=== PATIENT | female | born 1975 | race Caucasian/White ===

== ENCOUNTER 2022-06-14 11:35 | Emergency (ER) | payer SELFPAY ==
[~2022-06-14] VITALS: Ht 175.3 cm; Wt 86.2 kg
[2022-06-14] MEDS ORDERED: KETOROLAC TROMETHAMINE 30 MG/ML VIAL IV STA ×2 (12:15→14:41)
[2022-06-14] MEDS ORDERED: ONDANSETRON HCL INJ 2MG/ML 2ML 2 MG/ML VIAL IV PRN (12:15)
[2022-06-14] MEDS ORDERED: SODIUM CHLORIDE 0.9% 1000ML 1,000 ML IV ONE (12:15)
[2022-06-14] MEDS ORDERED: HYDROCODONE/APAP 5MG-325MG TAB PO PRN (12:30)
[2022-06-14] MEDS ORDERED: ONDANSETRON HCL 4 MG ORAL DISINTEGRATING TAB PO ONE (12:30)
[2022-06-14 13:12] LABS: ALBUMIN 3.6 g/dL (3.5-5.0); ALBUMIN/GLOBULIN RATIO 1.1 (0.8-2.0); ANION GAP 13.6 mmol/L (8-16); CALCIUM 8.7 mg/dL (8.4-10.2); CREATININE, SERUM 0.83 mg/dL (0.57-1.11); POTASSIUM 4.6 mmol/L (3.5-5.1)
[2022-06-14 13:55] LABS: BASOPHILS % 0.3 % (0.0-1.0); EOSINOPHILS # (AUTO) 0.1 (0.0-0.4); EOSINOPHILS % 1.7 % (0.0-6.0); HEMATOCRIT 41.6 % (34.2-44.1); HEMOGLOBIN 13.8 g/dL (12.0-16.0); LYMPHOCYTES # (AUTO) 2.7 (1.0-3.2); LYMPHOCYTES % 34.1 % (18.0-39.1); MEAN CORPUSCULAR HEMOGLOBIN 30.7 pg (28-32); MEAN CORPUSCULAR HGB CONC 33.2 g/dL (31-35); MEAN CORPUSCULAR VOLUME 92.7 fL (81-99); MONOCYTES # (AUTO) 0.4 (0.2-0.8); MONOCYTES % 5.6 % (4.4-11.3); NEUTROPHILS # (AUTO) 4.5 (2.1-6.9); PLATELET COUNT 291 x10e3/uL (140-360); RED BLOOD COUNT 4.49 x10e6/uL (3.6-5.1); RED CELL DISTRIBUTION WIDTH 12.5 % (11.7-14.4)
[2022-06-14 14:18] LABS: CLARITY,URINE CLOUDY (CLEAR); COLOR,URINE YELLOW (YELLOW)
[2022-06-14 14:19] LABS: KETONES,URINE TRACE (NEGATIVE); LEUKOCYTE ESTERASE ,URINE NEGATIVE (NEGATIVE); NITRITE,URINE NEGATIVE (NEGATIVE); PROTEIN,URINE DIPSTICK NEGATIVE (NEGATIVE); URINE UROBILINOGEN 0.2 mg/dL (0.2 - 1)
[2022-06-14 14:45] LABS: RBC,URINE 0-5 /HPF (0-5); WBC,URINE (MAN) 0-5 /HPF (0-5)
[2022-06-14 14:46] LABS: BACTERIA,URINE FEW /HPF; EPITHELIAL CELLS,URINE MANY /LPF
[2022-06-14] MEDS ORDERED: KETOROLAC TROME10 MG PO (14:54)
[2022-06-14] MEDS ORDERED: CEFDINIR 300 MG CAP PO SCH (17:00)
== END 2022-06-14 15:00 | disposition home or self-care (01) ==
LOC: ER 11:40
DX: M54.50 Low back pain, unspecified (principal); G89.29 Other chronic pain
CPT/HCPCS: 36415; 74176; 80053; 81001; 84702; 85025; 87086; 99284; J1885; Q0162

== ENCOUNTER 2024-05-19 18:57 | Observation (INO) | payer BC, OTHER ==
[~2024-05-19] VITALS: Ht 175.3 cm; Wt 86.2 kg
[~2024-05-19 18:57] MED LIST: KETOROLAC TROME10 MG PO
[2024-05-19 19:02] VITALS: TEMP 98.2
[2024-05-19 19:27] LABS: BASOPHILS % 0.2 % (0.0-1.0); EOSINOPHILS # (AUTO) 0.2 (0.0-0.4); EOSINOPHILS % 2.3 % (0.0-6.0); HEMATOCRIT 39.7 % (34.2-44.1); HEMOGLOBIN 13.6 g/dL (12.0-16.0); LYMPHOCYTES # (AUTO) 2.6 (1.0-3.2); LYMPHOCYTES % 28.4 % (18.0-39.1); MEAN CORPUSCULAR HEMOGLOBIN 31.3 pg (28-32); MEAN CORPUSCULAR HGB CONC 34.3 g/dL (31-35); MEAN CORPUSCULAR VOLUME 91.3 fL (81-99); MONOCYTES # (AUTO) 0.5 (0.2-0.8); NEUTROPHILS # (AUTO) 5.7 (2.1-6.9); NEUTROPHILS % 63.8 % (38.7-80.0); PLATELET COUNT 252 x10e3/uL (140-360); RED BLOOD COUNT 4.35 x10e6/uL (3.6-5.1); RED CELL DISTRIBUTION WIDTH 12.3 % (11.7-14.4); WHITE BLOOD COUNT 8.97 x10e3/uL (4.8-10.8)
[2024-05-19 19:43] LABS: ALBUMIN 3.7 g/dL (3.5-5.0); ANION GAP 16.4 mmol/L (8-16); BILIRUBIN,TOTAL 0.4 mg/dL (0.2-1.2); CALCIUM 8.8 mg/dL (8.4-10.2); CREATININE, SERUM 0.81 mg/dL (0.57-1.11); TOTAL PROTEIN 7.4 g/dL (6.5-8.1)
[2024-05-19 19:44] LABS: POTASSIUM 3.4 mmol/L (3.5-5.1)
[2024-05-19 19:50] LABS: TROPONIN I 0.002 ng/mL (0-0.300)
[2024-05-19] MEDS ORDERED: IOPAMIDOL 370 MG/ML 100 ML INFUS..BTL INJ ONE (21:25)
[2024-05-19] MEDS: ONDANSETRON HCL INJ 2MG/ML 2ML 2 MG/ML VIAL IV STA (21:35)
[2024-05-19] MEDS: Morphine 4mg INJECTION 4 MG/ML INJ IV STA (21:35)
[2024-05-19 22:33] VITALS: PULSE 70; RESP 17
[2024-05-20] VITALS (8 sets, daily range): BP systolic 124–172; BP diastolic 84–96; PULSE 64–94; RESP 18–20; TEMP 97.7–208.8; O2SAT 95–100
[2024-05-20] MEDS ORDERED: MELATONIN3 MG PO (00:49)
[2024-05-20] MEDS ORDERED: MACROBID 100 M100 MG PO (00:49)
[2024-05-20] MEDS ORDERED: PROGESTERONE100 MG (00:50)
[2024-05-20] MEDS ORDERED: VITAMIN D250 MCG (00:52)
[2024-05-20] MEDS ORDERED: MYRBETRIQ50 MG (00:53)
[2024-05-20] MEDS ORDERED: ONDANSETRON ODT8 MG PO (00:54)
[2024-05-20] MEDS: Morphine 4mg INJECTION 4 MG/ML INJ IV PRN (01:32)
[2024-05-20] MEDS: ONDANSETRON HCL INJ 2MG/ML 2ML 2 MG/ML VIAL IV PRN (01:32)
[2024-05-20 07:00] LABS: TROPONIN I 0.001 ng/mL (0-0.300)
[2024-05-20 07:08] LABS: ALBUMIN 3.2 g/dL (3.5-5.0); ANION GAP 13.7 mmol/L (8-16); BILIRUBIN,TOTAL 0.5 mg/dL (0.2-1.2); CALCIUM 8.2 mg/dL (8.4-10.2); CREATININE, SERUM 0.77 mg/dL (0.57-1.11); POTASSIUM 3.7 mmol/L (3.5-5.1); TOTAL PROTEIN 6.4 g/dL (6.5-8.1)
[2024-05-20 07:55] LABS: BASOPHILS % 0.3 % (0.0-1.0); EOSINOPHILS # (AUTO) 0.2 (0.0-0.4); EOSINOPHILS % 2.9 % (0.0-6.0); HEMATOCRIT 38.1 % (34.2-44.1); HEMOGLOBIN 12.7 g/dL (12.0-16.0); LYMPHOCYTES # (AUTO) 2.4 (1.0-3.2); LYMPHOCYTES % 32.6 % (18.0-39.1); MEAN CORPUSCULAR HEMOGLOBIN 31.4 pg (28-32); MEAN CORPUSCULAR HGB CONC 33.3 g/dL (31-35); MEAN CORPUSCULAR VOLUME 94.3 fL (81-99); MONOCYTES # (AUTO) 0.5 (0.2-0.8); MONOCYTES % 6.4 % (4.4-11.3); NEUTROPHILS # (AUTO) 4.3 (2.1-6.9); NEUTROPHILS % 57.7 % (38.7-80.0); PLATELET COUNT 218 x10e3/uL (140-360); RED BLOOD COUNT 4.04 x10e6/uL (3.6-5.1); RED CELL DISTRIBUTION WIDTH 12.5 % (11.7-14.4); WHITE BLOOD COUNT 7.46 x10e3/uL (4.8-10.8)
[2024-05-20 11:19] LABS: CHOL/HDL RATIO 4.3 (3.0-3.6)
[2024-05-20] MEDS ORDERED: REGADENOSON 0.4 MG/5 ML SYR IV ONE (14:27)
[2024-05-20 17:45] LABS: CREATINE KINASE 41 IU/L (29-168)
[2024-05-20 17:51] LABS: TROPONIN I < 0.001 ng/mL (0-0.300)
[2024-05-21 00:56] VITALS: BP 150/84; PULSE 79; RESP 18; TEMP 98.7; O2SAT 99
[2024-05-21 02:12] VITALS: BP 150/84; PULSE 94; RESP 18; TEMP 98.7; O2SAT 99
[2024-05-21 02:13] VITALS: BP 150/84; PULSE 94; RESP 18; TEMP 98.7; O2SAT 99
[2024-05-21 04:00] VITALS: BP 122/77; PULSE 92; RESP 18; TEMP 98.4; O2SAT 99
[2024-05-21 07:47] LABS: CREATINE KINASE 41 IU/L (29-168)
[2024-05-21 07:58] LABS: TROPONIN I < 0.001 ng/mL (0-0.300)
== END 2024-05-21 10:27 | disposition home or self-care (01) ==
LOC: ER 19:14 → ERHOLD 23:04 → MED/SURG3 05-20 00:23
PROVIDERS: ADMIT Internal Medicine; ATTEND Internal Medicine
DX: R07.89 Other chest pain (principal); I10 Essential (primary) hypertension; Z72.0 Tobacco use; G89.29 Other chronic pain
CPT/HCPCS: 36415 ×2; 71045; 71260; 78452; 80053 ×2; 80061; 82550 ×3; 82948; 83690; 83880; 84484 ×3; 85025 ×2; 93005; 93017; 93306; 99284; A9502; G0378 ×3; J2270 ×2; J2405 ×2; J2785; Q9967; U0002